=== PATIENT | male | born 1955 | race Caucasian/White ===

== ENCOUNTER 2016-06-06 15:34 | Emergency (ER) | payer SELFPAY ==
[2016-06-06] MEDS ORDERED: ASPIR LOW81 MG PO (15:43)
[2016-06-06] MEDS ORDERED: PROAIR HFA0.09 MG/AC IH (15:43)
[2016-06-06] MEDS ORDERED: NORCO 325 MG-51 TA1 PO (17:31)
[2016-06-06] MEDS ORDERED: NAPROXEN500 MG PO (17:31)
[2016-06-06 17:52] VITALS: BP 122/70
== END 2016-06-06 17:47 | disposition home or self-care (01) ==
LOC: ED 15:34
DX: S20.219A Contusion of unspecified front wall of thorax, initial encounter (principal); S40.011A Contusion of right shoulder, initial encounter; S16.1XXA Strain of muscle, fascia and tendon at neck level, initial encounter; W20.1XXA Struck by object due to collapse of building, initial encounter; Y93.H3 Activity, building and construction; Y92.71 Barn as the place of occurrence of the external cause; Y99.0 Civilian activity done for income or pay
CPT/HCPCS: J1885; J3010